=== PATIENT | male | born 1970 | race Caucasian/White ===

== ENCOUNTER 2025-05-03 14:54 | Outpatient (AMB) | payer BC, SELFPAY ==
[2025-05-03 14:52] VITALS: BP 142/72; PULSE 86; O2SAT 99; BMI 25.1
--- NOTE | 2025-05-03 14:52 | HO.NEPHOV_ITS ---
Vital Signs 05/03/25 14:52 05/03/25 15:05 Height 6 ft Weight 185 lb BMI 25.1 BP 142/72 H 120/64 Blood Pressure Location Lt brachial Lt brachial Position Sitting Sitting Pulse 86 Pulse Source Pulse Oximeter Pulse Oximetry (%) 99 Oxygen Delivery Method Room Air Intake Visit Reasons: ENP:Hypertension conf Anatomic Pathology Assistant Required: No Accompanied by: Self / Same As Patient Allergies No Known Allergies Allergy (Verified 05/03/25 14:56) Medication List - Last Reconciled 05/03/25 by Montana Pimentel MD lisinopril-hydrochlorothiazide 10-12.5 mg 1 tab PO DAILY HPI Comments Details: The patient is a 54-year-old male presenting with elevated blood pressure readings. He has been on Lisinopril and Hydrochlorothiazide for approximately three to four years, initially prescribed due to high blood pressure. At home, his blood pressure readings are typically in the 120s/70s range, but in the office, it was recorded as 140/92 mmHg. The patient denies any symptoms such as lightheadedness, headaches, or shortness of breath. He reports no history of heart or lung problems, and no issues with urination or leg swelling. He does not smoke and consumes alcohol socially. He works as a computer information science professor, which involves prolonged periods of sitting. There is no family history of hypertension. FOR[facility], [facility] Medical History (Updated 05/03/25 @ 14:57 by Montana Pimentel MD) Hypertension Family History Mother Arthritis Hyperlipidemia Review of Systems Const Denies fever(s) and Denies weight loss Card Denies chest pain Resp Denies cough and Denies hemoptysis GI Denies abdominal pain, Denies diarrhea and Denies nausea Musc Denies back pain Neuro Denies focal weakness Physical Exam Vital Signs: Last Vital Signs Pulse 86 05/03/25 14:52 BP 120/64 05/03/25 15:05 Pulse Ox 99 05/03/25 14:52 Oxygen Delivery Method Room Air 05/03/25 14:52 BMI result Body Mass Index 25.1 Comfortable Neck supple no JVD. Lungs entry equal no rales. Heart S1-S2 heard no gallop or rub. Abdomen soft nontender. Neuro alert awake oriented. No asterixis. Extremities no edema. Assessment & Plan Assessment & Plan (1) Hypertension: Code(s): I10 - Essential (primary) hypertension Category: Medical Plan Pleasant middle-aged man with well-controlled hypertension and question of white coat hypertension. In the office for initial blood pressure was elevated repeat blood pressure was acceptable. He probably has a component of white coat effect. I will arrange for a 24 hour ambulatory blood pressure monitoring. Based on this we can readjust his medications In the meantime he has stay on low-sodium diet No changes were made today. Orders: Orders AMB 24 HR B/P Monitor PLACEMENT Today I10 - Essential (primary) hypertension Coding Level of Care Code New Pt Level 4 (17739) Diagnoses Hypertension I10
[2025-05-03 15:05] VITALS: BP 120/64
== END 2025-05-03 15:06 | disposition home or self-care (01) ==
LOC: HO.HKA 14:55
PROVIDERS: Referring Provider Hospitalist; Visit Provider Internal Medicine Hypertension Specialist
DX: I10 Essential (primary) hypertension (principal)
CPT/HCPCS: 99204

== ENCOUNTER 2025-05-14 14:52 | Outpatient (AMB) | payer BC, SELFPAY ==
[2025-05-14 14:56] VITALS: BP 128/72; PULSE 74; O2SAT 99
--- NOTE | 2025-05-14 14:56 | HO.NEPHOV_ITS ---
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 He has been on Lisinopril and Hydrochlorothiazide for approximately three to four years, initially prescribed due to high blood pressure. At home, his blood pressure readings are typically in the 120s/70s range, but in the office, it was recorded as 140/92 mmHg. The patient denies any symptoms such as lightheadedness, headaches, or shortness of breath. He reports no history of heart or lung problems, and no issues with urination or leg swelling. He does not smoke and consumes alcohol socially. He works as a computer systems hardware analyst, which involves prolonged periods of sitting. There is no family history of hypertension. 05/14/2025. Underwent ABP [facility] Medical History (Updated 05/14/25 @ 15:10 by Montana Pimentel MD) Hypertension Family History Mother Arthritis Hyperlipidemia Physical Exam Vital Signs: Last Vital Signs Pulse 74 05/14/25 14:56 BP 128/72 05/14/25 14:56 Pulse Ox 99 05/14/25 14:56 Oxygen Delivery Method Room Air 05/14/25 14:56 Comfortable Neck supple no JVD. Lungs entry equal no rales. Heart S1-S2 heard no gallop or rub. Abdomen soft nontender. Neuro alert awake oriented. No asterixis. Extremities no edema. Office Procedures 24 B/P Monitor Interpretation Details: Overall blood pressure is well controlled. Daytime average 110/72 Nighttime average 105/65 24 hour average 109/71. CPT: 80441 24 Hour Blood Pressure Monitor Reading Procedure code (CPT) selection complete Assessment & Plan Assessment & Plan (1) Hypertension: Code(s): I10 - Essential (primary) hypertension Category: Medical (2) Elevated blood pressure reading in office with white coat syndrome, with diagnosis of hypertension: Code(s): I10 - Essential (primary) hypertension Category: Medical Plan Pleasant middle-aged man with well-controlled hypertension and question of white coat hypertension. In the office for initial blood pressure was elevated repeat blood pressure was acceptable. 24 hour ABP M revealed well-controlled hypertension with nocturnal dipping. He has evidence of white superimposed white coat effect. Based on the ABP M no need to make any changes to his antihypertensive regimen. Encouraged to stay on low-sodium diet Keep monitoring his blood pressure at home. Orders: Orders AMB 24 HR B/P Monitor INTERPRETATION Today I10 - Essential (primary) hypertension Coding Level of Care Code Est Pt Level 3 (51674) Diagnoses Hypertension I10 Elevated blood pressure reading in office with white coat syndrome, with diagnosis of hypertension I10 CPT Codes - CPT: 58626 24 Hour Blood Pressure Monitor Reading ([id number])
== END 2025-05-14 15:50 | disposition home or self-care (01) ==
LOC: HO.HKA 14:53
PROVIDERS: Visit Provider Internal Medicine Hypertension Specialist
DX: I10 Essential (primary) hypertension (principal)
CPT/HCPCS: 93790; 99213

== ENCOUNTER → 2025-05-14 14:52 | Outpatient (BNVA) | payer BC, SELFPAY | PROVIDERS: Visit Provider Internal Medicine Hypertension Specialist | DX: I10 Essential (primary) hypertension (principal) | CPT/HCPCS: 93786; 93788 ==